=== PATIENT | male | born 1960 | race Caucasian/White ===

== ENCOUNTER 2019-09-08 16:37 | IRF | payer MEDICARE, SELFPAY ==
--- NOTE | ~2019-09-08 | XR_ITS ---
EXAMINATION: XR chest 1V portable DATE: 09/11/2019 12:45 INDICATION: Congestion. Low oxygen saturation. TECHNIQUE: A single frontal view of the chest was obtained. COMPARISON: None. FINDINGS: There are airspace opacities in the lower lung zones. No pleural effusion or pneumothorax. The heart size is normal. There are changes of anterior fusion procedure in cervical spine. IMPRESSION: 1. Airspace opacities in the lower lung zones, consistent with atelectasis versus pneumonia. Reviewed, dictated and finalized at location A. IMPRESSION: 1. Airspace opacities in the lower lung zones, consistent with atelectasis vers us pneumonia.
--- NOTE | 2019-09-08 17:06 | ADMGEN ---
This patient, Garrick Curiel, was admitted to [facility] Room 222-02. Patient/family oriented to hospital policies and general routines including ID bracelet, bed and alarms, visiting hours, pain management, procedures, bathroom and other care routines, personal items, smoking policy, room service/diet, and visiting hours. Valuables list has been completed. Information on how to activate the Rapid Response Team has been discussed. Patient/Family are encouraged to report perceived risks to care and to ask questions if they do not understand what they are told or what they should do. arrived to [facility] at 1635, was transported by [facility], he is alert and oriented x3
[2019-09-08 17:17] VITALS: BMI 29.2
[2019-09-08 17:18] VITALS: BP 132/67; PULSE 112; RESP 20; TEMP 37.1; O2SAT 98
[2019-09-08 17:44] VITALS: BMI 29.2
[2019-09-08 20:00] VITALS: PULSE 112; RESP 18; O2SAT 95
[2019-09-08] MEDS: traZODone HCL 50 MG TABLET PO (20:09)
[2019-09-08] MEDS: TAMSULOSIN HCL 0.4 MG CAPSULE 0.8 MG PO (20:09)
[2019-09-08] MEDS: HALOPERIDOL 5 MG TABLET 10 MG PO (20:09)
[2019-09-08] MEDS: ALPRAZolam 0.5 MG TABLET 1 MG PO (20:50)
[2019-09-08] MEDS: QUEtiapine FUMARATE 100 MG TABLET 300 MG PO (20:52)
[2019-09-08 20:58] LABS: Add Urine Microscopic? YES; Appearance Urine Clear (Clear); Bacteria Urine Trace /hpf; Bilirubin Urine Negative (Negative); Blood Urine 1+ (Negative); Color Urine Yellow (Yellow); Glucose Urine UA Negative (Negative); Ketones Urine Negative (Negative); Leukocyte Esterase Ur Trace LEU/UL (Negative); Nitrate Urine Negative (Negative); Protein Urine Negative (Negative); RBC Urine 21-50 /hpf (0-2); Specific Grav Ur 1.018 (1.001-1.035)
[2019-09-08 22:00] VITALS: BP 153/80; PULSE 112; RESP 18; TEMP 36.9; O2SAT 95
[2019-09-09 05:01] LABS: Basophils Percent Auto 0.5 % (0.2-1.2); Eosinophils Absolute Auto 0.4 K/mm3 (0-0.3); Eosinophils Percent Auto 5.6 % (0-4.4); Hematocrit 29.1 % (42.0-52.0); Hemoglobin 9.4 g/dL (14.0-18.0); Immature Granulocyte Absolute 0.02 K/mm3 (0.00-0.031); Immature Granulocyte Percent A 0.3 % (0-0.5); Lymphocytes Percent Auto 23.9 % (18.3-44.2); Mean Corpuscular HGB Conc 32.3 g/dl (32-36); Mean Corpuscular Hemoglobin 29.8 pg (26-34); Mean Corpuscular Volume 92.4 fl (80-100); Mean Platelet Volume 9.1 fl (7.4-10.4); Monocytes Absolute Auto 0.7 K/mm3 (0.1-0.6); Monocytes Percent Auto 11.8 % (2.6-8.5); Neutrophils Absolute Auto 3.6 K/mm3 (1.3-6.7); Neutrophils Percent Auto 57.9 % (45.5-73.1); Platelet Count Result 317 k/mm3 (150-375); Red Blood Count 3.15 M/mm3 (4.6-6.20); Red Cell Distribution Width 14.3 % (11.5-14.5); White Blood Count 6.3 K/mm3 (4.5-10.0)
[2019-09-09 05:18] LABS: Anion Gap 11.6 mmol/L (7-16); Blood Urea Nitrogen 11 mg/dL (9-20); Calcium 8.7 mg/dL (8.4-10.2); Carbon Dioxide 28 mmol/L (22-30); Chloride 101 mmol/L (98-107); Estimated CRCL calculation 74 ml/min; Estimated Glomerular Filt Rate > 60; Glucose 109 mg/dL (75-110); Potassium 3.6 mmol/L (3.4-5.0); Sodium 137 mmol/L (137-145)
[2019-09-09 06:00] VITALS: BP 122/73; PULSE 111; RESP 20; TEMP 37.3; O2SAT 91
[2019-09-09] MEDS: ASPIRIN 325 MG ENTERIC TABLET PO (09:52)
[2019-09-09] MEDS: ATORVASTATIN 40 MG TABLET 80 MG PO (09:52)
[2019-09-09] MEDS: ALPRAZolam 0.5 MG TABLET 1 MG PO ×2 (09:52→20:54)
[2019-09-09] MEDS: HALOPERIDOL 5 MG TABLET 10 MG PO ×2 (09:52→20:51)
[2019-09-09] MEDS: ENOXAPARIN 40 MG/0.4 ML SYRINGE SUB-Q (09:52)
[2019-09-09] MEDS: SENNA/DOCUSATE SODIUM TABLET 2 TAB PO ×2 (09:52→18:04)
[2019-09-09] MEDS: FERROUS SULFATE 324 MG TABLET PO (09:53)
[2019-09-09] MEDS: QUEtiapine FUMARATE 100 MG TABLET 300 MG PO ×2 (09:53→20:51)
[2019-09-09] MEDS: lisinopriL 10 MG TABLET PO (09:53)
[2019-09-09] MEDS: PANTOPRAZOLE 40 MG TABLET PO (09:53)
[2019-09-09] MEDS: LIDOCAINE 5% PATCH 1 PATCH TOPICAL (09:53)
--- NOTE | 2019-09-09 11:00 | WPDREHABHP ---
H&P: HPI History of Present Illness Chief complaint: Right Lower Extremity Fracture Narrative: Garrick Curiel is a 59 year old male HISTORY OF PRESENT ILLNESS: The patient's primary rehab impairment category is orthopedic/other The etiologic diagnosis is comminuted displaced and angulated periprosthetic fracture of the proximal right tibial diaphysis I saw this patient [id number] on September 09, 2019 at 11:00 a.m. The patient is a 59-year-old white male with past medical history of hypertension coronary artery disease bipolar disorder 1 and gastroesophageal reflux disease who initially presented to a local hospital on September 02 after falling when his knee gave out . Imaging demonstrated a comminuted displaced and angulated periprosthetic fracture of the proximal right tibial diaphysis and comminuted shortened displaced and angulated right fibular head fracture. The patient was transferred to [facility] in [place] the same day. Orthopedic surgery was consulted and the patient underwent an open reduction internal fixation of the right tibia on September 04, [address] Adrien Osorio. He is nonweightbearing to the right lower extremity for 6 weeks. Sutures/garcia to be removed 3 weeks from surgery and may be removed by rehab or home health nursing. Postoperatively the patient had experienced acute postoperative pain acute blood-loss anemia urinary retention and hypertension. He is currently on oral and just 6 he is hemodynamically stable a catheter was placed and patient was started on Flomax and hypertension is controlled with oral medications. The patient was discharged to us with Lovenox for DVT prophylaxis and then transition to and recorder aspirin 320 form b.i.d. for 14 days after discharge. The patient has a documented history of prescription pain killer/benzodiazepine abuse in 2012. The patient has not traveled outside the [place] or had contact with someone who is ill that has traveled outside the [place] in the past 21 days. The patient has not traveled to an area of the [place] and is experiencing known transmission of the Coronavirus and has not had close personal contact with anyone that has. The patient does not have a fever. The patient is not experiencing any lower respiratory illness symptoms. The patient was test for COVID-19 and September 03, 2019 and was negative Therapy was initiated at the acute care facility and the patient transferred to us from [facility] on September 08, 2019 FALLS OR SURGERIES: The patient has had ] major surgeries in the 100 days prior to admission. They had falls in the past year. They had falls with injury in the past year. PAST MEDICAL HISTORY: anemia, anxiety, bipolar 1 disorder, colon polyp, depression, epilepsy, gastroesophageal reflux disease, migraines, right rotator cuff tear, hyperlipidemia, and hypertension. The patient sees a psychiatrist for almost 15 years for his bipolar 1 disorder in [facility] PAST SURGICAL HISTORY: colonoscopy in 2014, right knee arthrocentesis, right rotator cuff repair, neck surgery with hardware, right knee surgery for torn meniscus and upper GI. SOCIAL HISTORY: Patient lives in a 1 level home with 3 steps to enter. The patient's works and is not sure how much she can take off work. Patient was completely independent prior with no assistive device. The patient has had 2 or more falls in the past 6 months and major surgery the during this admission. His a former smoker quit in March of 2019 no alcohol or drug abuse FAMILY HISTORY: father with stomach cancer mother with hypertension stroke heart attack and heart failure PRIOR LEVEL OF FUNCTION: Eating was INDEPENDENT Oral Care was INDEPENDENT Toileting Hygiene was INDEPENDENT Shower/Bathing was INDEPENDENT Upper Body Dressing was INDEPENDENT Lower Body Dressing was INDEPENDENT Donning/[place]ak[place] Footwear was INDEPENDENT Rolling Left and Right was INDEPENDENT Sit to
[2019-09-09] MEDS: CYCLOBENZAPRINE HCL 5 MG TABLET PO ×2 (13:17→18:03)
[2019-09-09 13:52] VITALS: BMI 29.2
[2019-09-09 14:00] VITALS: BP 118/58; PULSE 114; RESP 20; TEMP 36.9; O2SAT 96
--- NOTE | 2019-09-09 15:21 | PCPTNOTE ---
Leihg Li PT completed an inpatient rehab wheelchair evaluation on Garrick Curiel on 09/09/2019. The patient is unable to safely and independently ambulate household distances due to their current impairments. Their diagnosis is Right Lower Extremity Fracture and their impairments include decreased strength, decreased endurance, decreased range of motion, decreased balance, lower extremity weakness, and ataxia. Mr. Curiel's weight bearing status is non weight-bearing on the right lower leg. The patient demonstrates significant functional mobility limitations that impair their ability to participate in mobility-related activities of daily living (MRADLs), including toileting, feeding, dressing, grooming, and bathing in the customary locations in the home. These limitations cannot be sufficiently resolved by the use of an appropriately fitted cane or walker. It is recommended that the patient utilize a wheelchair for functional mobility within the home in order to facilitate optimal safety, independence and participation in all MRADL's and adequately access their home environment on a regular basis. The patient's home provides adequate access between rooms, maneuvering space, and surfaces to accommodate the recommended wheelchair. The use of a wheelchair for functional mobility is strongly recommended and the patient is receptive to using the wheelchair. The use of this wheelchair will significantly improve the patient's ability to participate in MRADLS and the patient will use it on a regular basis in the home. This will facilitate optimal safety, independence, and participation. The patient has demonstrated sufficient physical and mental capabilities needed to safely propel a manual wheelchair that is provided in the home during a typical day. Recommended Wheelchair Frame: standard Recommended Wheelchair Size: 18 x 18 Recommended Wheelchair Cushion:standard Wheelchair Leg Recommendations: Elevated, detachable - Elevating legrests are recommended because the patient has a musculoskeletal condition or the presence of a cast or brace which prevents 90 degree flexion at the knee. Elevating legrests are recommended because the patient has significant edema of the lower extremities that requires an elevating legrest. - Anti-tippers are recommended due to patient demonstrating increased risk for falls. They would benefit from anti-tippers with added safety and stabilization. Leigh Li DPT 09/09/19____ Evaluating Therapist Date I agree with and certify that the above recommendation is medically necessary. Referring Physician Date I agree with and certify that the above recommendation is medically necessary. Referring Physician Date
--- NOTE | 2019-09-09 15:27 | PCPTNOTE ---
Garrick Curiel was evaluated for a standard walker on 09/09/2019 by this physical therapist. The standard walker will resolve patient's mobility limitations and will be used for ADL's within the home. The patient can safely use the standard walker. ?The standard walker will resolve the patient?s mobility deficits, including ambulation, transfers, and overall functional mobility.
[2019-09-09] MEDS: TAMSULOSIN HCL 0.4 MG CAPSULE 0.8 MG PO (18:03)
[2019-09-09 20:00] VITALS: PULSE 110; RESP 17; O2SAT 94
[2019-09-09] MEDS: traZODone HCL 50 MG TABLET PO (20:52)
[2019-09-09 22:00] VITALS: BP 115/58; PULSE 110; RESP 17; TEMP 37.3; O2SAT 94
[2019-09-10 06:00] VITALS: BP 105/48; PULSE 105; RESP 16; TEMP 36.4; O2SAT 91
[2019-09-10] MEDS: ALPRAZolam 0.5 MG TABLET 1 MG PO ×2 (09:00→21:07)
[2019-09-10] MEDS: ATORVASTATIN 40 MG TABLET 80 MG PO (09:00)
[2019-09-10] MEDS: ENOXAPARIN 40 MG/0.4 ML SYRINGE SUB-Q (09:01)
[2019-09-10] MEDS: FERROUS SULFATE 324 MG TABLET PO (09:01)
[2019-09-10] MEDS: HALOPERIDOL 5 MG TABLET 10 MG PO ×2 (09:01→21:07)
[2019-09-10] MEDS: SENNA/DOCUSATE SODIUM TABLET 2 TAB PO ×2 (09:01→17:21)
[2019-09-10] MEDS: QUEtiapine FUMARATE 100 MG TABLET 300 MG PO ×2 (09:02→21:08)
[2019-09-10] MEDS: PANTOPRAZOLE 40 MG TABLET PO (09:02)
[2019-09-10] MEDS: LIDOCAINE 5% PATCH 1 PATCH TOPICAL (09:02)
[2019-09-10] MEDS: lisinopriL 10 MG TABLET PO (09:02)
[2019-09-10] MEDS: CYCLOBENZAPRINE HCL 5 MG TABLET PO ×3 (09:23→17:47)
[2019-09-10 09:58] VITALS: BP 81/46; PULSE 120; O2SAT 91
--- NOTE | 2019-09-10 13:21 | RPD ---
INDIVIDUALIZED PLAN OF CARE FOR Garrick Curiel Brief Synthesis of Pre-Admission Screen, Post-Admission Evaluation and Therapy Evaluations: The patient presents to rehab with Comminuted, displaced, and angulated periprosthetic fracture of the proximal right tibial diaphysis. Comorbidities include Comminuted, shortened, displaced, and angulated right fibular head fracture, bilateral hip osteoarthritis, status post open reduction internal fixation right tibia, acute postoperative pain, acute blood loss anemia, urinary retention, gastroesophageal reflux disease, anxiety, bipolar affective disorder, epilepsy, hyperlipidemia, severe esophagitis, coronary artery disease, hypertension, and hyperlipidemia. The patient?s needs will be best met in an intensive program vs. at a lower level of care. The patient requires physician services for medical oversight, management of postop complications in setting of present comorbidities, and pain management. He will be followed at least three times a week by the rehabilitation physician. Orthopedics may see the patient at the frequency of their discretion. Labs will be drawn to monitor blood counts and electrolytes periodically. The patient requires nursing services for DVT prophylactics, infection protection, medication management and education, pressure relief, and wound care. Deficits include: ADLs, Balance, Endurance, Family Training/Education, Mobility, Pain Management, ROM, Safety, Strength, and Transfers. Auto Wrecker/Case Management for: Discharge Planning and Patient/Family Counseling Physical Therapy: 5 days per week for 90 minutes. Treatments may include: Therapeutic Exercise, Gait Training, Neuromuscular Re-education, Transfer Training, Community Reintegration, Bed Mobility, Patient/Family Education, Wheelchair Mobility Group Therapy/Concurrent Therapy Rationales: -Improve attention span during functional activities in a distracted environment. -Enhance problem solving and/or adequate judgment skills during functional activities in a distracted environment. -Promote increased safety awareness in a distracted environment to reduce fall risk with functional tasks, transfers, and ambulation to allow a more safe, self-sufficient return to the home environment. -Improve dynamic balance skills to promote safety and independence with functional activities in a distracted environment for maximum gain. Occupational Therapy: 5 days per week for 90 minutes. Treatments may include: Therapeutic Exercise, Therapeutic Activity, Cognitive Training, Self-Care Transfer Training, Community Reintegration, Home Management, Patient/Family Education, Wheelchair Mobility Training, Energy Conservation Training Group Therapy/Concurrent Therapy Rationales: -Allow therapist to observe and teach generalization and carry-over of skills learned in individual therapy. -Enhance problem solving and sequencing skills during therapeutic activities in a distracted environment. -Promote increased safety awareness in a realistic setting to reduce fall risk with functional tasks due to visual and verbal distractions. -Increase functional level with ADLs, ADL transfers and use of adaptive equipment through therapeutic activities with others while promoting safety to allow a more safe, self-sufficient return home. Speech Therapy: 0 days per week for 0 minutes. Treatments may include: Dysphasia Therapy, Speech/Language/Communication Therapy, Cognitive Training, Patient/Family Education Group Therapy/Concurrent Therapy - Rationale: -Allow therapist to observe and teach generalization and carry-over of skills learned in individual therapy. -Improve comprehension skills with complex or abstract ideas through discussion in a realistic setting. -Enhance problem solving skills with complex issues during activities in a distracted environment. -Promote increased memory skills and concentration in a distracted environment for a safe transition home. -Improve attentio
--- NOTE | 2019-09-10 13:54 | RPD ---
INDIVIDUALIZED PLAN OF CARE FOR Garrick Curiel Brief Synthesis of Pre-Admission Screen, Post-Admission Evaluation and Therapy Evaluations: The patient presents to rehab with . Comorbidities include . Deficits include: Marketing Strategy Analyst/Case Management for: Discharge Planning and Patient/Family Counseling Physical Therapy: 5 days per week for 90 minutes. Treatments may include: Therapeutic Exercise, Gait Training, Neuromuscular Re-education, Transfer Training, Community Reintegration, Bed Mobility, Patient/Family Education, Wheelchair Mobility Group Therapy/Concurrent Therapy Rationales: -Improve attention span during functional activities in a distracted environment. -Enhance problem solving and/or adequate judgment skills during functional activities in a distracted environment. -Promote increased safety awareness in a distracted environment to reduce fall risk with functional tasks, transfers, and ambulation to allow a more safe, self-sufficient return to the home environment. -Improve dynamic balance skills to promote safety and independence with functional activities in a distracted environment for maximum gain. Occupational Therapy: 5 days per week for 90 minutes. Treatments may include: Therapeutic Exercise, Therapeutic Activity, Cognitive Training, Self-Care Transfer Training, Community Reintegration, Home Management, Patient/Family Education, Wheelchair Mobility Training, Energy Conservation Training Group Therapy/Concurrent Therapy Rationales: -Allow therapist to observe and teach generalization and carry-over of skills learned in individual therapy. -Enhance problem solving and sequencing skills during therapeutic activities in a distracted environment. -Promote increased safety awareness in a realistic setting to reduce fall risk with functional tasks due to visual and verbal distractions. -Increase functional level with ADLs, ADL transfers and use of adaptive equipment through therapeutic activities with others while promoting safety to allow a more safe, self-sufficient return home. Speech Therapy: 5 days per week for 30 minutes. Treatments may include: Dysphasia Therapy, Speech/Language/Communication Therapy, Cognitive Training, Patient/Family Education Group Therapy/Concurrent Therapy - Rationale: -Allow therapist to observe and teach generalization and carry-over of skills learned in individual therapy. -Improve comprehension skills with complex or abstract ideas through discussion in a realistic setting. -Enhance problem solving skills with complex issues during activities in a distracted environment. -Promote increased memory skills and concentration in a distracted environment for a safe transition home. -Improve attention and focus with language/communication skills in a realistic and supportive therapeutic setting. -Allow for practice of expression of basic needs and ideas through functional activities with others. Medical Prognosis: Good Anticipated Length of Stay: 12 days Rehab Goals: Eating Goal: 06-Independent Oral Hygiene Goal: 06-Independent Toileting Hygiene Goal: 06-Independent Shower/Bathe Self Goal: 06-Independent Upper Body Dressing Goal: 06-Independent Lower Body Dressing Goal: 06-Independent Putting On/Taking Off Footwear Goal: 06-Independent Rolling Left and Right Goal: 06-Independent Sit to Lying Goal: 06-Independent Lying to Sitting on Side of Bed Goal: 06-Independent Sit to Stand Goal: 06-Independent Chair/Cxu-ey-Tzodr Transfer Goal: 06-Independent Toilet Transfer Goal: 06-Independent Car Transfer Goal: 06-Independent Walk 10' Goal: 03-Partial/Moderate Assistance Walk 50' with Two Turns Goal: 06-Independent Walk 150' Goal: 06-Independent Walk 10' on Uneven Surface Goal: 06-Independent 1 Step (Curb) Goal: 06-Independent 4 Steps Goal: 06-Independent 12 Steps Goal Score: 09-Not Applicable Picking Up Object Goal: 06-Independent Wheel 50' with Two Turns Score: 06-Independent Wheel 150' Goal: 06-Independent
[2019-09-10 14:00] VITALS: BP 95/53; PULSE 110; RESP 16; TEMP 36.5; O2SAT 92
--- NOTE | 2019-09-10 15:34 | WPDNEURORHBP ---
Subjective Date/time seen: 09/10/19 15:34 Interval history: this 59-year-old is here after having had surgery for the right lower extremity fracture his doing fairly well however he has a Bolden catheter which I have requested to get to a point of voiding trial and get rid of the catheter his blood pressure is also on the low side so have told the nurses to hold his lisinopril overall pictures of improvement denies any headache nausea vomiting chest pain shortness of breath fever chills sore throat Review of Systems Review of Systems: All systems reviewed & are unremarkable except as noted in HPI and below Functional Status Ambulation Ability Ability to Ambulate 10 Feet: Contact Guard Ambulation Assistive Devices: Walker, Standard Transfers Ability Ability to Transfer In/Out of Chair: Contact Guard Exam Const: General: comfortable and no acute distress HENMT: General nose exam: Normal nares present Mouth: Yes moist mucous membranes Eyes: General: appearance normal, both eyes and all related structures Neck: Neck: supple and no JVD Resp: Effort & Inspection: normal respiratory effort Auscultation: clear to auscultation bilaterally Cardio: Rate: regular rate Rhythm: regular rhythm GI: GI Palp: Yes Soft to palpation Auscultation: normal bowel sounds Urinary Catheter: Urinary Catheter: patent and draining Skin: General skin exam: normal color and no rashes or lesions noted Neuro: Other: patient is awake and alert well oriented to time place and person the weakness related to the surgery of course is there otherwise no lateralizing focal motor deficits noted Extrem: Other: the incision from the periprosthetic fracture of the right lower extremity is clean Psych: Mental Status: mental status grossly normal Objective Data Vital Signs Vital Signs: Vital Signs - 24 hr 09/09/19 20:00 09/09/19 22:00 09/10/19 06:00 Temperature 37.3 C 36.4 C L Pulse Rate 110 H 110 H 105 H Respiratory Rate 17 17 16 Blood Pressure 115/58 L 105/48 L Pulse Oximetry 94 94 91 09/10/19 09:58 09/10/19 14:00 Temperature 36.5 C Pulse Rate 120 H 110 H Respiratory Rate 16 Blood Pressure 81/46 L 95/53 L Pulse Oximetry 91 92 Intake/Output Intake/Output: Intake & Output 09/07/19 09/08/19 09/09/19 09/10/19 23:59 23:59 23:59 23:59 Intake Total 720 990 Output Total 1440 775 Balance -1330 215 Meds/Results Medications: Active Medications Generic Name Dose Route Start Last Admin Trade Name Nika PRN Reason Stop Dose Admin Acetaminophen 1,000 mg 09/08/19 18:02 Tylenol Tablet PO Q6H PRN Pain 1-3 Alprazolam 1 mg 09/08/19 21:00 09/10/19 09:00 Xanax PO 1 mg Q12HR MATT Administration Atorvastatin Calcium 80 mg 09/09/19 09:00 09/10/19 09:00 Lipitor PO 80 mg DAILY MATT Administration Cyclobenzaprine HCl 5 mg 09/09/19 13:00 09/10/19 13:09 Flexeril PO 5 mg TID MATT Administration Enoxaparin Sodium 40 mg 09/09/19 09:00 09/10/19 09:01 Lovenox SUB-Q 10/06/19 09:00 40 mg DAILY MATT Administration Ferrous Sulfate 324 mg 09/09/19 09:00 09/10/19 09:01 Ferrous Sulfate PO 324 mg DAILY MATT Administration Haloperidol 10 mg 09/08/19 21:00 09/10/19 09:01 Haldol Tablet PO 10 mg Q12HR MATT Administration Lidocaine 1 patch 09/09/19 09:00 09/10/19 09:02 Lidoderm TOPICAL 1 patch DAILY MATT Administration Oxycodone HCl 5 mg 09/09/19 13:00 09/10/19 13:09 Roxicodone Ir Tablet PO 5 mg Q4HR MATT Administration Pantoprazole Sodium 40 mg 09/09/19 09:00 09/10/19 09:02 Protonix PO 40 mg QAM MATT Administration Quetiapine Fumarate 300 mg 09/08/19 21:00 09/10/19 09:02 Seroquel PO 300 mg Q12HR MATT Administration Senna/Docusate Sodium 2 tab 09/09/19 09:00 09/10/19 09:01 Senokot S Tablet PO 2 tab BID MATT Administration Tamsulosin HCl 0.8 mg 09/08/19 18:30 09/09/19 18:03 Flomax PO 0.8 mg DAILY@1700 S
[2019-09-10] MEDS: TAMSULOSIN HCL 0.4 MG CAPSULE 0.8 MG PO (17:46)
[2019-09-10] MEDS: traZODone HCL 50 MG TABLET PO (21:09)
[2019-09-10 22:00] VITALS: BP 114/42; PULSE 106; RESP 18; TEMP 36.8; O2SAT 95
[2019-09-11 06:00] VITALS: BP 107/55; PULSE 99; RESP 18; TEMP 36.7; O2SAT 93
[2019-09-11] MEDS: CYCLOBENZAPRINE HCL 5 MG TABLET PO ×3 (08:35→17:06)
[2019-09-11] MEDS: HALOPERIDOL 5 MG TABLET 10 MG PO ×2 (08:35→20:35)
[2019-09-11] MEDS: ALPRAZolam 0.5 MG TABLET 1 MG PO ×2 (08:35→20:38)
[2019-09-11] MEDS: ENOXAPARIN 40 MG/0.4 ML SYRINGE SUB-Q (08:35)
[2019-09-11] MEDS: ATORVASTATIN 40 MG TABLET 80 MG PO (08:35)
[2019-09-11] MEDS: QUEtiapine FUMARATE 100 MG TABLET 300 MG PO ×2 (08:36→20:35)
[2019-09-11] MEDS: LIDOCAINE 5% PATCH 1 PATCH TOPICAL (08:36)
[2019-09-11] MEDS: FERROUS SULFATE 324 MG TABLET PO (11:26)
[2019-09-11] MEDS: SENNA/DOCUSATE SODIUM TABLET 2 TAB PO ×2 (11:26→17:06)
[2019-09-11] MEDS: PANTOPRAZOLE 40 MG TABLET PO (11:27)
--- NOTE | 2019-09-11 13:53 | PC.NURSE ---
lung sounds this am are coarse with wheezes throughout, reported to dr. Smith, cxr and albuterol nebs ordered. cxr results called to [facility] rogers ordered Educated patient on importance of using incentive spirometer/pulmonary toileting He verbalized understandin
[2019-09-11 14:00] VITALS: BP 121/47; PULSE 114; RESP 16; TEMP 36.7; O2SAT 94
[2019-09-11 14:42] LABS: Basophils Percent Auto 0.3 % (0.2-1.2); Eosinophils Absolute Auto 0.3 K/mm3 (0-0.3); Eosinophils Percent Auto 5.4 % (0-4.4); Hematocrit 28.6 % (42.0-52.0); Hemoglobin 9.2 g/dL (14.0-18.0); Immature Granulocyte Absolute 0.03 K/mm3 (0.00-0.031); Immature Granulocyte Percent A 0.5 % (0-0.5); Lymphocytes Percent Auto 29.4 % (18.3-44.2); Mean Corpuscular HGB Conc 32.2 g/dl (32-36); Mean Corpuscular Volume 93.2 fl (80-100); Mean Platelet Volume 8.9 fl (7.4-10.4); Monocytes Absolute Auto 0.8 K/mm3 (0.1-0.6); Monocytes Percent Auto 13.4 % (2.6-8.5); Neutrophils Absolute Auto 3.1 K/mm3 (1.3-6.7); Platelet Count Result 424 k/mm3 (150-375); Red Blood Count 3.07 M/mm3 (4.6-6.20); Red Cell Distribution Width 14.6 % (11.5-14.5); White Blood Count 6.1 K/mm3 (4.5-10.0)
[2019-09-11] MEDS: ALBUTEROL SULFATE NEB 2.5 MG/3 ML INH INHALATION ×2 (14:43→21:50)
[2019-09-11 14:44] VITALS: PULSE 92; RESP 16
[2019-09-11 14:52] VITALS: PULSE 88; RESP 16
[2019-09-11] MEDS: TAMSULOSIN HCL 0.4 MG CAPSULE 0.8 MG PO (17:07)
[2019-09-11] MEDS: traZODone HCL 50 MG TABLET PO (20:35)
[2019-09-11 21:50] VITALS: PULSE 104; RESP 18
[2019-09-11 22:00] VITALS: BP 112/73; PULSE 105; PULSE 111; RESP 18; TEMP 37; O2SAT 92
[2019-09-12] VITALS (12 sets, daily range): BP systolic 102–139; BP diastolic 58–63; PULSE 91–113; RESP 18–20; TEMP 36.3–36.9; O2SAT 91–98
[2019-09-12] MEDS: ALBUTEROL SULFATE NEB 2.5 MG/3 ML INH INHALATION ×4 (03:07→21:07)
[2019-09-12] MEDS: HALOPERIDOL 5 MG TABLET 10 MG PO ×2 (08:32→19:48)
[2019-09-12] MEDS: LIDOCAINE 5% PATCH 1 PATCH TOPICAL (08:32)
[2019-09-12] MEDS: ENOXAPARIN 40 MG/0.4 ML SYRINGE SUB-Q (08:32)
[2019-09-12] MEDS: ALPRAZolam 0.5 MG TABLET 1 MG PO ×2 (08:33→19:46)
[2019-09-12] MEDS: CYCLOBENZAPRINE HCL 5 MG TABLET PO ×3 (08:33→17:17)
[2019-09-12] MEDS: QUEtiapine FUMARATE 100 MG TABLET 300 MG PO ×2 (08:33→19:48)
[2019-09-12] MEDS: FERROUS SULFATE 324 MG TABLET PO (08:33)
[2019-09-12] MEDS: SENNA/DOCUSATE SODIUM TABLET 2 TAB PO ×2 (08:33→17:18)
[2019-09-12] MEDS: PANTOPRAZOLE 40 MG TABLET PO (08:33)
[2019-09-12] MEDS: ATORVASTATIN 40 MG TABLET 80 MG PO (08:33)
--- NOTE | 2019-09-12 14:06 | PCCCNOTE ---
On 09/12/19, the student, [Alexi Gleason ], provided care and completed [facility] documentation on this patient. I have reviewed the student's documentation and agree with the findings.
--- NOTE | 2019-09-12 14:48 | WPDNEURORHBP ---
Subjective Date/time seen: 09/12/19 14:48 Interval history: this 59-year-old with a history of bipolar disorder is here to recuperate post surgery for the right knee periprosthetic fracture he is making progress denies any headache nausea vomiting chest pain shortness of breath fever chills sore throat Review of Systems Review of Systems: All systems reviewed & are unremarkable except as noted in HPI and below Functional Status Ambulation Ability Ability to Ambulate 10 Feet: Contact Guard Ambulation Assistive Devices: Walker, Standard Transfers Ability Ability to Transfer In/Out of Chair: Contact Guard Exam Const: General: comfortable and no acute distress HENMT: General nose exam: Normal nares present Mouth: Yes moist mucous membranes Eyes: General: appearance normal, both eyes and all related structures Neck: Neck: supple and no JVD Resp: Effort & Inspection: normal respiratory effort Auscultation: clear to auscultation bilaterally Cardio: Rate: regular rate Rhythm: regular rhythm GI: GI Palp: Yes Soft to palpation Auscultation: normal bowel sounds Skin: General skin exam: normal color and no rashes or lesions noted Neuro: Other: patient is awake and alert well oriented making progress any deficit he has is related to the fracture he sustained otherwise a nonfocal examination Extrem: Other: the incision from the surgery for the periprosthetic fracture is clean no sign of infection Psych: Mental Status: mental status grossly normal Objective Data Vital Signs Vital Signs: Vital Signs - 24 hr 09/11/19 14:52 09/11/19 21:50 09/11/19 22:00 Temperature 37.0 C Pulse Rate 88 104 H 105 H Respiratory Rate 16 18 18 Blood Pressure 112/73 Pulse Oximetry 92 09/12/19 03:08 09/12/19 03:16 09/12/19 06:00 Temperature 36.9 C Pulse Rate 91 93 102 H Respiratory Rate 18 18 18 Blood Pressure 102/58 L Pulse Oximetry 91 09/12/19 07:22 09/12/19 07:33 09/12/19 14:00 Temperature 36.3 C L Pulse Rate 102 H 93 113 H Respiratory Rate 20 20 20 Blood Pressure 111/63 Pulse Oximetry 97 09/12/19 14:44 Temperature Pulse Rate 106 H Respiratory Rate 20 Blood Pressure Pulse Oximetry Intake/Output Intake/Output: Intake & Output 09/09/19 09/10/19 09/11/1920 23:59 23:59 23:59 23:59 Intake Total 720 1290 1240 720 Output Total 1216 1175 1500 Balance -1330 115 -260 720 Meds/Results Medications: Active Medications Generic Name Dose Route Start Last Admin Trade Name Freq PRN Reason Stop Dose Admin Acetaminophen 1,000 mg 09/08/19 18:02 Tylenol Tablet PO Q6H PRN Pain 1-3 Albuterol 2.5 mg 09/11/19 14:00 09/12/19 14:43 Albuterol Sulf Neb 2.5 Mg/3 Ml INHALATION 2.5 mg Q6HRT MATT Administration Alprazolam 1 mg 09/08/19 21:00 09/12/19 08:33 Xanax PO 1 mg Q12HR MATT Administration Atorvastatin Calcium 80 mg 09/09/19 09:00 09/12/19 08:33 Lipitor PO 80 mg DAILY MATT Administration Cyclobenzaprine HCl 5 mg 09/09/19 13:00 09/12/19 13:11 Flexeril PO 5 mg TID MATT Administration Enoxaparin Sodium 40 mg 09/09/19 09:00 09/12/19 08:32 Lovenox SUB-Q 10/06/19 09:00 40 mg DAILY MATT Administration Ferrous Sulfate 324 mg 09/09/19 09:00 09/12/19 08:33 Ferrous Sulfate PO 324 mg DAILY MATT Administration Haloperidol 10 mg 09/08/19 21:00 09/12/19 08:32 Haldol Tablet PO 10 mg Q12HR MATT Administration Lidocaine 1 patch 09/09/19 09:00 09/12/19 08:32 Lidoderm TOPICAL 1 patch DAILY MATT Administration Oxycodone HCl 5 mg 09/09/19 13:00 09/12/19 13:11 Roxicodone Ir Tablet PO 5 mg Q4HR MATT Administration Pantoprazole Sodium 40 mg 09/09/19 09:00 09/12/19 08:33 Protonix PO 40 mg QAM MATT Administration Quetiapine Fumarate 300 mg 09/08/19 21:00 09/12/19 08:33 Seroquel PO 300 mg Q12HR MATT Administration Senna/Docusate Sodium 2 tab 09/09/19 09:00 09/12/19 08:33
[2019-09-12] MEDS: TAMSULOSIN HCL 0.4 MG CAPSULE 0.8 MG PO (17:17)
[2019-09-12] MEDS: traZODone HCL 50 MG TABLET PO (19:48)
[2019-09-13] VITALS (10 sets, daily range): BP systolic 113–132; BP diastolic 54–68; PULSE 72–108; RESP 18–20; TEMP 36.4–36.8; O2SAT 95–100
[2019-09-13] MEDS: ALBUTEROL SULFATE NEB 2.5 MG/3 ML INH INHALATION ×4 (02:56→21:06)
[2019-09-13] MEDS: ALPRAZolam 0.5 MG TABLET 1 MG PO ×2 (08:11→20:20)
[2019-09-13] MEDS: CYCLOBENZAPRINE HCL 5 MG TABLET PO ×3 (08:12→17:31)
[2019-09-13] MEDS: QUEtiapine FUMARATE 100 MG TABLET 300 MG PO ×2 (08:12→20:20)
[2019-09-13] MEDS: SENNA/DOCUSATE SODIUM TABLET 2 TAB PO ×2 (08:12→17:31)
[2019-09-13] MEDS: PANTOPRAZOLE 40 MG TABLET PO (08:12)
[2019-09-13] MEDS: ENOXAPARIN 40 MG/0.4 ML SYRINGE SUB-Q (08:12)
[2019-09-13] MEDS: ATORVASTATIN 40 MG TABLET 80 MG PO (08:12)
[2019-09-13] MEDS: LIDOCAINE 5% PATCH 1 PATCH TOPICAL (08:12)
[2019-09-13] MEDS: FERROUS SULFATE 324 MG TABLET PO (08:12)
[2019-09-13] MEDS: HALOPERIDOL 5 MG TABLET 10 MG PO ×2 (08:13→20:20)
[2019-09-13] MEDS: ACETAMINOPHEN 500 MG TABLET 1000 MG PO (11:44)
--- NOTE | 2019-09-13 14:03 | PCRCNOTE ---
pt did not get respiratory tx/in gym with PT for an hour
[2019-09-13] MEDS: TAMSULOSIN HCL 0.4 MG CAPSULE 0.8 MG PO (17:31)
[2019-09-13] MEDS: traZODone HCL 50 MG TABLET PO (20:20)
[2019-09-14] VITALS (9 sets, daily range): BP systolic 110–133; BP diastolic 56–63; PULSE 89–104; RESP 16–18; TEMP 36.5–36.9; O2SAT 95–98
[2019-09-14] MEDS: ALBUTEROL SULFATE NEB 2.5 MG/3 ML INH INHALATION ×3 (03:09→20:13)
[2019-09-14] MEDS: HALOPERIDOL 5 MG TABLET 10 MG PO ×2 (08:23→20:36)
[2019-09-14] MEDS: CYCLOBENZAPRINE HCL 5 MG TABLET PO ×3 (08:23→17:26)
[2019-09-14] MEDS: LIDOCAINE 5% PATCH 1 PATCH TOPICAL (08:23)
[2019-09-14] MEDS: ALPRAZolam 0.5 MG TABLET 1 MG PO ×2 (08:23→20:36)
[2019-09-14] MEDS: FERROUS SULFATE 324 MG TABLET PO (08:24)
[2019-09-14] MEDS: ENOXAPARIN 40 MG/0.4 ML SYRINGE SUB-Q (08:24)
[2019-09-14] MEDS: ATORVASTATIN 40 MG TABLET 80 MG PO (08:24)
[2019-09-14] MEDS: PANTOPRAZOLE 40 MG TABLET PO (08:24)
[2019-09-14] MEDS: SENNA/DOCUSATE SODIUM TABLET 2 TAB PO ×2 (08:24→17:26)
[2019-09-14] MEDS: QUEtiapine FUMARATE 100 MG TABLET 300 MG PO ×2 (08:25→20:35)
[2019-09-14] MEDS: TAMSULOSIN HCL 0.4 MG CAPSULE 0.8 MG PO (17:27)
[2019-09-14] MEDS: traZODone HCL 50 MG TABLET PO (20:36)
[2019-09-15 06:00] VITALS: BP 109/69; PULSE 93; RESP 18; TEMP 36.6; O2SAT 94
[2019-09-15] MEDS: ENOXAPARIN 40 MG/0.4 ML SYRINGE SUB-Q (09:30)
[2019-09-15] MEDS: LIDOCAINE 5% PATCH 1 PATCH TOPICAL (09:30)
[2019-09-15] MEDS: HALOPERIDOL 5 MG TABLET 10 MG PO ×2 (09:31→20:18)
[2019-09-15] MEDS: SENNA/DOCUSATE SODIUM TABLET 2 TAB PO ×2 (09:31→17:37)
[2019-09-15] MEDS: ATORVASTATIN 40 MG TABLET 80 MG PO (09:31)
[2019-09-15] MEDS: ALPRAZolam 0.5 MG TABLET 1 MG PO ×2 (09:31→20:17)
[2019-09-15] MEDS: CYCLOBENZAPRINE HCL 5 MG TABLET PO ×3 (09:31→17:37)
[2019-09-15] MEDS: FERROUS SULFATE 324 MG TABLET PO (09:31)
[2019-09-15] MEDS: PANTOPRAZOLE 40 MG TABLET PO (09:31)
[2019-09-15] MEDS: QUEtiapine FUMARATE 100 MG TABLET 300 MG PO ×2 (09:32→20:18)
--- NOTE | 2019-09-15 11:51 | WPDNEURORHBP ---
Subjective Date/time seen: seen on 09/14/19 at 12 noon and doumented todayh/oright periprosthetic fracture with underlying bipolar illness Functional Status Ambulation Ability Ability to Ambulate 10 Feet: Contact Guard Ability to Ambulate 50 Feet With 2 Turns: Contact Guard Ambulation Assistive Devices: Walker, Standard Transfers Ability Ability to Transfer In/Out of Chair: Contact Guard Exam Const: General: cooperative, comfortable and no acute distress HENMT: Head: normal to inspection Ears: hearing grossly normal bilaterally General nose exam: Normal external nose present and No nasal discharge present Face and sinus: normal facial exam Mouth: Yes Normal oral and palatal mucosa present Eyes: General: appearance normal, both eyes and all related structures Neck: Neck: full ROM Resp: Auscultation: clear to auscultation bilaterally Cardio: Rate: regular rate Rhythm: regular rhythm Skin: General skin exam: no rashes or lesions noted Neuro: General: oriented to time Cranial nerves: Yes CN's II-XII intact bilaterally Cognition (Neuro): normal cognition Speech: normal speech Motor exam (neuro): 5/5 motor strength present throughout Sensory Exam: normal sensation Plantar Reflex Responses: downgoing: bilateral Coordination: [id number] test normal Extrem: General: normal to inspection Psych: Appearance: grossly normal Objective Data Vital Signs Vital Signs: Vital Signs - 24 hr 09/14/19 14:00 09/14/19 20:13 09/14/19 20:16 Temperature 36.9 C 36.5 C Pulse Rate 104 H 97 102 H Respiratory Rate 18 18 16 Blood Pressure 114/61 133/63 Pulse Oximetry 98 98 09/14/19 20:22 09/15/19 06:00 Temperature 36.6 C Pulse Rate 99 93 Respiratory Rate 18 18 Blood Pressure 109/69 Pulse Oximetry 94 Intake/Output Intake/Output: Intake & Output 09/12/19 09/13/19 09/14/19 09/15/19 23:59 23:59 23:59 23:59 Intake Total 960 960 880 240 Balance 960 960 880 240 Meds/Results Medications: Active Medications Generic Name Dose Route Start Last Admin Trade Name Freq PRN Reason Stop Dose Admin Acetaminophen 1,000 mg 09/08/19 18:02 09/13/19 11:44 Tylenol Tablet PO 1,000 mg Q6H PRN Administration Pain 1-3 Albuterol 2.5 mg 09/14/19 13:19 09/14/19 20:13 Albuterol Sulf Neb 2.5 Mg/3 Ml INHALATION 2.5 mg Q6HRT PRN Administration Shortness Of Breath Alprazolam 1 mg 09/08/19 21:00 09/15/19 09:31 Xanax PO 1 mg Q12HR MATT Administration Atorvastatin Calcium 80 mg 09/09/19 09:00 09/15/19 09:31 Lipitor PO 80 mg DAILY MATT Administration Cyclobenzaprine HCl 5 mg 09/09/19 13:00 09/15/19 09:31 Flexeril PO 5 mg TID MATT Administration Enoxaparin Sodium 40 mg 09/09/19 09:00 09/15/19 09:30 Lovenox SUB-Q 10/06/19 09:00 40 mg DAILY MATT Administration Ferrous Sulfate 324 mg 09/09/19 09:00 09/15/19 09:31 Ferrous Sulfate PO 324 mg DAILY MATT Administration Haloperidol 10 mg 09/08/19 21:00 09/15/19 09:31 Haldol Tablet PO 10 mg Q12HR MATT Administration Lidocaine 1 patch 09/09/19 09:00 09/15/19 09:30 Lidoderm TOPICAL 1 patch DAILY MATT Administration Oxycodone HCl 5 mg 09/09/19 13:00 09/15/19 09:31 Roxicodone Ir Tablet PO 5 mg Q4HR MATT Administration Pantoprazole Sodium 40 mg 09/09/19 09:00 09/15/19 09:31 Protonix PO 40 mg QAM MATT Administration Quetiapine Fumarate 300 mg 09/08/19 21:00 09/15/19 09:32 Seroquel PO 300 mg Q12HR MATT Administration Senna/Docusate Sodium 2 tab 09/09/19 09:00 09/15/19 09:31 Senokot S Tablet PO 2 tab BID MATT Administration Tamsulosin HCl 0.8 mg 09/08/19 18:30 09/14/19 17:27 Flomax PO 0.8 mg DAILY@1700 MATT Administration Trazodone HCl 50 mg 09/08/19 21:00 09/14/19 20:36 Desyrel PO 50 mg HS MATT Administration Radiology Results: ITS Impressions Chest X-Ray 09/11/19 12:51 IMPRESSION: 1. Airspace opacities in the lower
[2019-09-15 14:00] VITALS: BP 130/89; PULSE 101; RESP 20; TEMP 36.7; O2SAT 100
[2019-09-15 15:08] VITALS: PULSE 90; RESP 20
[2019-09-15] MEDS: ALBUTEROL SULFATE NEB 2.5 MG/3 ML INH INHALATION (15:08)
[2019-09-15 15:21] VITALS: PULSE 94; RESP 20
[2019-09-15] MEDS: TAMSULOSIN HCL 0.4 MG CAPSULE 0.8 MG PO (17:37)
[2019-09-15] MEDS: traZODone HCL 50 MG TABLET PO (20:18)
[2019-09-15 21:44] VITALS: BP 135/76; PULSE 100; RESP 18; TEMP 35.8; O2SAT 98
[2019-09-16] VITALS (7 sets, daily range): BP systolic 122–141; BP diastolic 71–73; PULSE 94–108; RESP 16–20; TEMP 35.4–36.8; O2SAT 97–98
[2019-09-16] MEDS: ALBUTEROL SULFATE NEB 2.5 MG/3 ML INH INHALATION ×2 (05:36→15:12)
[2019-09-16 05:44] LABS: Basophils Absolute Auto 0.1 K/mm3 (0.0-0.1); Basophils Percent Auto 0.6 % (0.2-1.2); Eosinophils Absolute Auto 0.3 K/mm3 (0-0.3); Eosinophils Percent Auto 4.2 % (0-4.4); Hematocrit 30.8 % (42.0-52.0); Hemoglobin 9.7 g/dL (14.0-18.0); Immature Granulocyte Absolute 0.05 K/mm3 (0.00-0.031); Immature Granulocyte Percent A 0.6 % (0-0.5); Lymphocytes Absolute Auto 2.04 K/mm3 (0.9-3.2); Lymphocytes Percent Auto 26.3 % (18.3-44.2); Mean Corpuscular HGB Conc 31.5 g/dl (32-36); Mean Corpuscular Hemoglobin 29.7 pg (26-34); Mean Corpuscular Volume 94.2 fl (80-100); Monocytes Absolute Auto 0.9 K/mm3 (0.1-0.6); Monocytes Percent Auto 11.5 % (2.6-8.5); Neutrophils Absolute Auto 4.4 K/mm3 (1.3-6.7); Neutrophils Percent Auto 56.8 % (45.5-73.1); Platelet Count Result 645 k/mm3 (150-375); Red Blood Count 3.27 M/mm3 (4.6-6.20); Red Cell Distribution Width 14.4 % (11.5-14.5); White Blood Count 7.8 K/mm3 (4.5-10.0)
[2019-09-16 06:05] LABS: Blood Urea Nitrogen 11 mg/dL (9-20); Carbon Dioxide 29 mmol/L (22-30); Chloride 103 mmol/L (98-107); Estimated CRCL calculation 67 ml/min; Estimated Glomerular Filt Rate > 60; Glucose 104 mg/dL (75-110); Sodium 139 mmol/L (137-145)
[2019-09-16] MEDS: LIDOCAINE 5% PATCH 1 PATCH TOPICAL (08:08)
[2019-09-16] MEDS: ENOXAPARIN 40 MG/0.4 ML SYRINGE SUB-Q (08:08)
[2019-09-16] MEDS: CYCLOBENZAPRINE HCL 5 MG TABLET PO (08:09)
[2019-09-16] MEDS: ATORVASTATIN 40 MG TABLET 80 MG PO (08:09)
[2019-09-16] MEDS: SENNA/DOCUSATE SODIUM TABLET 2 TAB PO ×2 (08:09→17:09)
[2019-09-16] MEDS: FERROUS SULFATE 324 MG TABLET PO (08:10)
[2019-09-16] MEDS: QUEtiapine FUMARATE 100 MG TABLET 300 MG PO ×2 (08:10→21:15)
[2019-09-16] MEDS: HALOPERIDOL 5 MG TABLET 10 MG PO ×2 (08:10→21:16)
[2019-09-16] MEDS: PANTOPRAZOLE 40 MG TABLET PO (08:10)
[2019-09-16] MEDS: ALPRAZolam 0.5 MG TABLET 1 MG PO ×2 (08:10→21:15)
--- NOTE | 2019-09-16 12:24 | WPDNEURORHBP ---
Subjective Date/time seen: 09/16/19 12:24 Interval history: this 59-year-old gentleman is here post surgery for periprosthetic fracture of his right knee is making progress however the pain is slowing down is therapy but is quite motivated and doing fairly well with the adjustment of the pain medication he denies any headache nausea vomiting chest pain or shortness of breath Review of Systems Review of Systems: All systems reviewed & are unremarkable except as noted in HPI and below Functional Status Ambulation Ability Ability to Ambulate 10 Feet: Standby Assistance Ability to Ambulate 50 Feet With 2 Turns: Contact Guard Ambulation Assistive Devices: Walker, Standard Transfers Ability Ability to Transfer In/Out of Chair: Contact Guard Exam Const: General: comfortable and no acute distress HENMT: General nose exam: Normal nares present Mouth: Yes moist mucous membranes Eyes: General: appearance normal, both eyes and all related structures Neck: Neck: supple and no JVD Resp: Effort & Inspection: normal respiratory effort Auscultation: clear to auscultation bilaterally Cardio: Rate: regular rate Rhythm: regular rhythm Skin: General skin exam: normal color and no rashes or lesions noted Neuro: Other: patient is awake and alert well oriented follows all commands the time of the examination after the team conference he was doing fairly well and pain is fairly well controlled Extrem: Other: the surgical site is clean Psych: Mental Status: mental status grossly normal Objective Data Vital Signs Vital Signs: Vital Signs - 24 hr 09/15/19 14:00 09/15/19 15:08 09/15/19 15:21 Temperature 36.7 C Pulse Rate 101 H 90 94 Respiratory Rate 20 20 20 Blood Pressure 130/89 Pulse Oximetry 100 09/15/19 21:44 09/16/19 05:37 09/16/19 05:44 Temperature 35.8 C L Pulse Rate 100 103 H 100 Respiratory Rate 18 16 18 Blood Pressure 135/76 Pulse Oximetry 98 09/16/19 06:00 Temperature 35.4 C L Pulse Rate 108 H Respiratory Rate 18 Blood Pressure 122/71 Pulse Oximetry 97 Intake/Output Intake/Output: Intake & Output 09/13/19 09/14/19 09/15/19 09/16/19 23:59 23:59 23:59 23:59 Intake Total 960 880 720 500 Balance 960 880 720 500 Meds/Results Medications: Active Medications Generic Name Dose Route Start Last Admin Trade Name Serafinq PRN Reason Stop Dose Admin Acetaminophen 1,000 mg 09/08/19 18:02 09/13/19 11:44 Tylenol Tablet PO 1,000 mg Q6H PRN Administration Pain 1-3 Albuterol 2.5 mg 09/14/19 13:19 09/16/19 05:36 Albuterol Sulf Neb 2.5 Mg/3 Ml INHALATION 2.5 mg Q6HRT PRN Administration Shortness Of Breath Alprazolam 1 mg 09/08/19 21:00 09/16/19 08:10 Xanax PO 1 mg Q12HR MATT Administration Atorvastatin Calcium 80 mg 09/09/19 09:00 09/16/19 08:09 Lipitor PO 80 mg DAILY MATT Administration Cyclobenzaprine HCl 10 mg 09/16/19 14:00 Flexeril PO Q8HR MATT Enoxaparin Sodium 40 mg 09/09/19 09:00 09/16/19 08:08 Lovenox SUB-Q 10/06/19 09:00 40 mg DAILY MATT Administration Ferrous Sulfate 324 mg 09/09/19 09:00 09/16/19 08:10 Ferrous Sulfate PO 324 mg DAILY MATT Administration Haloperidol 10 mg 09/08/19 21:00 09/16/19 08:10 Haldol Tablet PO 10 mg Q12HR MATT Administration Lidocaine 1 patch 09/09/19 09:00 09/16/19 08:08 Lidoderm TOPICAL 1 patch DAILY MATT Administration Oxycodone HCl 5 mg 09/16/19 10:50 Roxicodone Ir Tablet PO Q4HR PRN SEVERE PAIN Oxycodone HCl 10 mg 09/16/19 18:00 Oxycontin Sr 12hr PO Q12H MATT Pantoprazole Sodium 40 mg 09/09/19 09:00 09/16/19 08:10 Protonix PO 40 mg QAM MATT Administration Quetiapine Fumarate 300 mg 09/08/19 21:00 09/16/19 08:10 Seroquel PO 300 mg Q12HR MATT Administration Senna/Docusate Sodium 2 tab 09/09/19 09:00 09/16/19 08:09 Senokot S Tablet PO 2 tab BID MATT Administration Tamsulosin HCl
[2019-09-16] MEDS: CYCLOBENZAPRINE HCL 10 MG TABLET PO ×2 (12:56→21:15)
--- NOTE | 2019-09-16 13:56 | PCNFU ---
Nutrition Follow-Up Complete: No nutrition diagnosis at this time. Goal: Patient to consume 75% of meals or greater. Patient is meeting goal at 85% average Pt current nutrition is regular. Nutrition recommendation: Agree with current recommendations. Last recorded weight is 87.3 kg. Bowel Motility: last bowel movement reported on 09/15/19 Labs Reviewed: Hgb (9.7) Hct (30.8) Meds Noted: xanax, lovenox, ferrous sulfate, prinivil, roxicodine, protonix, senokot, flomax, albuterol Additional Notes: Patient requesting smaller portion sizes. Diet office was notified. Patient states hamburger and meatloaf are dry and salt and pepper were forgotten on tray. Patient reports good appetite and did not express any diet related concerns/questions at this time Follow up in 7 days.
--- NOTE | 2019-09-16 14:04 | PCNSR ---
On 09/16/19, the student, Joshua Caicedo, provided care and completed [facility] documentation on this patient. I have reviewed the student's documentation and agree with the findings.
[2019-09-16] MEDS: TAMSULOSIN HCL 0.4 MG CAPSULE 0.8 MG PO (17:09)
[2019-09-16] MEDS: traZODone HCL 50 MG TABLET PO (21:16)
[2019-09-17] MEDS: CYCLOBENZAPRINE HCL 10 MG TABLET PO ×3 (05:27→22:22)
[2019-09-17 05:44] VITALS: BP 137/64; PULSE 103; RESP 20; TEMP 36.3; O2SAT 96
[2019-09-17 05:54] VITALS: PULSE 102; RESP 18
[2019-09-17] MEDS: ALBUTEROL SULFATE NEB 2.5 MG/3 ML INH INHALATION (05:54)
[2019-09-17 06:03] VITALS: PULSE 103; RESP 18
[2019-09-17] MEDS: ENOXAPARIN 40 MG/0.4 ML SYRINGE SUB-Q (08:19)
[2019-09-17] MEDS: ALPRAZolam 0.5 MG TABLET 1 MG PO ×2 (08:19→20:16)
[2019-09-17] MEDS: ATORVASTATIN 40 MG TABLET 80 MG PO (08:19)
[2019-09-17] MEDS: FERROUS SULFATE 324 MG TABLET PO (08:20)
[2019-09-17] MEDS: SENNA/DOCUSATE SODIUM TABLET 2 TAB PO ×2 (08:20→17:12)
[2019-09-17] MEDS: LIDOCAINE 5% PATCH 1 PATCH TOPICAL (08:21)
[2019-09-17] MEDS: PANTOPRAZOLE 40 MG TABLET PO (08:21)
[2019-09-17] MEDS: HALOPERIDOL 5 MG TABLET 10 MG PO ×2 (08:21→20:16)
[2019-09-17] MEDS: QUEtiapine FUMARATE 100 MG TABLET 300 MG PO ×2 (09:16→20:16)
[2019-09-17 14:00] VITALS: BP 113/68; PULSE 96; RESP 18; TEMP 36.3; O2SAT 94
--- NOTE | 2019-09-17 17:00 | WPDNEURORHBP ---
Subjective Date/time seen: 09/17/19 17:00 Interval history: this 59-year-old gentleman is here after having had surgery for the right lower extremity fracture the incision is clean no sign of infection is noted his pain control is fair so I have increased his OxyContin extended release to 3 times a day overall he is definitely is making progress doing well his underlying psychiatric condition is under control He denies any headache nausea vomiting chest pain shortness of breath fever chills sore throat Review of Systems Review of Systems: All systems reviewed & are unremarkable except as noted in HPI and below Functional Status Ambulation Ability Ability to Ambulate 10 Feet: Contact Guard Ability to Ambulate 50 Feet With 2 Turns: Contact Guard Ambulation Assistive Devices: Walker, Standard Transfers Ability Ability to Transfer In/Out of Chair: Contact Guard Exam Const: General: comfortable and no acute distress HENMT: General nose exam: Normal nares present Mouth: Yes moist mucous membranes Eyes: General: appearance normal, both eyes and all related structures Neck: Neck: supple and no JVD Resp: Effort & Inspection: normal respiratory effort Auscultation: clear to auscultation bilaterally Cardio: Rate: regular rate Rhythm: regular rhythm GI: GI Palp: Yes Soft to palpation Auscultation: normal bowel sounds Skin: General skin exam: normal color and no rashes or lesions noted Neuro: Other: patient is awake alert well oriented follows all commands making process excellent in the rehab and any weakness is related to the fracture he has sustained and post surgery Extrem: Other: the incision is clean and healthy Psych: Mental Status: mental status grossly normal Objective Data Vital Signs Vital Signs: Vital Signs - 24 hr 09/16/19 21:37 09/17/19 05:44 09/17/19 05:54 Temperature 36.8 C 36.3 C L Pulse Rate 96 103 H 102 H Respiratory Rate 18 20 18 Blood Pressure 125/71 137/64 Pulse Oximetry 98 96 09/17/19 06:03 09/17/19 14:00 Temperature 36.3 C L Pulse Rate 103 H 96 Respiratory Rate 18 18 Blood Pressure 113/68 Pulse Oximetry 94 Intake/Output Intake/Output: Intake & Output 09/14/19 09/15/19 09/16/19 09/17/19 23:59 23:59 23:59 23:59 Intake Total 880 720 980 560 Balance 880 720 980 560 Meds/Results Medications: Active Medications Generic Name Dose Route Start Last Admin Trade Name Serafinq PRN Reason Stop Dose Admin Acetaminophen 1,000 mg 09/08/19 18:02 09/13/19 11:44 Tylenol Tablet PO 1,000 mg Q6H PRN Administration Pain 1-3 Albuterol 2.5 mg 09/14/19 13:19 09/17/19 05:54 Albuterol Sulf Neb 2.5 Mg/3 Ml INHALATION 2.5 mg Q6HRT PRN Administration Shortness Of Breath Alprazolam 1 mg 09/08/19 21:00 09/17/19 08:19 Xanax PO 1 mg Q12HR MATT Administration Atorvastatin Calcium 80 mg 09/09/19 09:00 09/17/19 08:19 Lipitor PO 80 mg DAILY MATT Administration Cyclobenzaprine HCl 10 mg 09/16/19 14:00 09/17/19 14:18 Flexeril PO 10 mg Q8HR MATT Administration Enoxaparin Sodium 40 mg 09/09/19 09:00 09/17/19 08:19 Lovenox SUB-Q 10/06/19 09:00 40 mg DAILY MATT Administration Ferrous Sulfate 324 mg 09/09/19 09:00 09/17/19 08:20 Ferrous Sulfate PO 324 mg DAILY MATT Administration Haloperidol 10 mg 09/08/19 21:00 09/17/19 08:21 Haldol Tablet PO 10 mg Q12HR MATT Administration Lidocaine 1 patch 09/09/19 09:00 09/17/19 08:21 Lidoderm TOPICAL 1 patch DAILY MATT Administration Oxycodone HCl 10 mg 09/17/19 14:00 09/17/19 14:19 Oxycontin Sr 12hr PO 10 mg Q8HR MATT Administration Oxycodone HCl 5 mg 09/17/19 12:00 09/17/19 11:57 Roxicodone Ir Tablet PO 5 mg Q3H PRN Administration SEVERE PAIN Pantoprazole Sodium 40 mg 09/09/19 09:00 09/17/19 08:21 Protonix PO 40 mg QAM MATT Administration Quetiapine Fumarate 300 mg 09/08/19 21:00 09/17/19 09:16 Seroquel PO
[2019-09-17] MEDS: TAMSULOSIN HCL 0.4 MG CAPSULE 0.8 MG PO (17:11)
[2019-09-17] MEDS: traZODone HCL 50 MG TABLET PO (20:17)
[2019-09-17 20:43] VITALS: BP 129/77; PULSE 97; RESP 20; TEMP 36.6; O2SAT 98
[2019-09-18] MEDS: CYCLOBENZAPRINE HCL 10 MG TABLET PO ×3 (05:07→20:53)
[2019-09-18 05:11] VITALS: BP 103/65; PULSE 93; RESP 18; TEMP 36.3; O2SAT 93
[2019-09-18] MEDS: LIDOCAINE 5% PATCH 1 PATCH TOPICAL (09:42)
[2019-09-18] MEDS: ALPRAZolam 0.5 MG TABLET 1 MG PO ×2 (09:45→20:52)
[2019-09-18] MEDS: ENOXAPARIN 40 MG/0.4 ML SYRINGE SUB-Q (09:46)
[2019-09-18] MEDS: SENNA/DOCUSATE SODIUM TABLET 2 TAB PO ×2 (09:46→16:57)
[2019-09-18] MEDS: ATORVASTATIN 40 MG TABLET 80 MG PO (09:46)
[2019-09-18] MEDS: HALOPERIDOL 5 MG TABLET 10 MG PO ×2 (09:46→20:51)
[2019-09-18] MEDS: FERROUS SULFATE 324 MG TABLET PO (09:46)
[2019-09-18] MEDS: PANTOPRAZOLE 40 MG TABLET PO (09:47)
[2019-09-18] MEDS: QUEtiapine FUMARATE 100 MG TABLET 300 MG PO ×2 (09:47→20:53)
[2019-09-18 14:00] VITALS: BP 128/71; PULSE 106; RESP 20; TEMP 36.7; O2SAT 97
[2019-09-18] MEDS: TAMSULOSIN HCL 0.4 MG CAPSULE 0.8 MG PO (16:57)
[2019-09-18] MEDS: traZODone HCL 50 MG TABLET PO (20:52)
[2019-09-18 22:00] VITALS: BP 121/71; PULSE 97; RESP 17; TEMP 36.9; O2SAT 97
[2019-09-19 06:00] VITALS: BP 141/61; PULSE 99; RESP 18; TEMP 36.3; O2SAT 95
[2019-09-19] MEDS: CYCLOBENZAPRINE HCL 10 MG TABLET PO ×3 (06:31→19:54)
[2019-09-19] MEDS: ALPRAZolam 0.5 MG TABLET 1 MG PO ×2 (08:48→19:54)
[2019-09-19] MEDS: SENNA/DOCUSATE SODIUM TABLET 2 TAB PO ×2 (08:49→17:44)
[2019-09-19] MEDS: ATORVASTATIN 40 MG TABLET 80 MG PO (08:49)
[2019-09-19] MEDS: ENOXAPARIN 40 MG/0.4 ML SYRINGE SUB-Q (08:49)
[2019-09-19] MEDS: FERROUS SULFATE 324 MG TABLET PO (08:49)
[2019-09-19] MEDS: QUEtiapine FUMARATE 100 MG TABLET 300 MG PO ×2 (08:50→19:55)
[2019-09-19] MEDS: HALOPERIDOL 5 MG TABLET 10 MG PO ×2 (08:50→19:55)
[2019-09-19] MEDS: PANTOPRAZOLE 40 MG TABLET PO (08:50)
[2019-09-19] MEDS: LIDOCAINE 5% PATCH 1 PATCH TOPICAL (08:50)
[2019-09-19 14:00] VITALS: BP 129/67; PULSE 105; RESP 16; TEMP 36.8; O2SAT 98
--- NOTE | 2019-09-19 15:20 | WPDNEURORHBP ---
Subjective Date/time seen: 09/19/19 15:20 Interval history: this 59-year-old gentleman is here because of right lower extremity fracture the incision is healing well he is nonweightbearing on that lower extremity but making progress quite a bit denies any headache nausea vomiting chest pain shortness of breath fever chills sore throat Review of Systems Review of Systems: All systems reviewed & are unremarkable except as noted in HPI and below Functional Status Ambulation Ability Ability to Ambulate 10 Feet: Independent Ability to Ambulate 50 Feet With 2 Turns: Contact Guard Ambulation Assistive Devices: Walker, Standard Transfers Ability Ability to Transfer In/Out of Chair: Contact Guard Exam Const: General: comfortable and no acute distress HENMT: General nose exam: Normal nares present Mouth: Yes moist mucous membranes Eyes: General: appearance normal, both eyes and all related structures Neck: Neck: supple and no JVD Resp: Effort & Inspection: normal respiratory effort Auscultation: clear to auscultation bilaterally Cardio: Rate: regular rate Rhythm: regular rhythm GI: GI Palp: Yes Soft to palpation Auscultation: normal bowel sounds Skin: General skin exam: normal color and no rashes or lesions noted Neuro: Other: patient's is overall stable making progress any weakness is related to the not very moving bearing status of the right lower extremity Extrem: Other: the incision on the right leg is clean and healthy Psych: Mental Status: mental status grossly normal Objective Data Vital Signs Vital Signs: Vital Signs - 24 hr 09/18/19 22:00 09/19/19 06:00 09/19/19 14:00 Temperature 36.9 C 36.3 C L 36.8 C Pulse Rate 97 99 105 H Respiratory Rate 17 18 16 Blood Pressure 121/71 141/61 H 129/67 Pulse Oximetry 97 95 98 Intake/Output Intake/Output: Intake & Output 09/16/19 09/17/19 09/18/19 09/19/19 23:59 23:59 23:59 23:59 Intake Total 646 724 0916 1200 Balance 173 992 8363 1200 Meds/Results Medications: Active Medications Generic Name Dose Route Start Last Admin Trade Name Freq PRN Reason Stop Dose Admin Acetaminophen 1,000 mg 09/08/19 18:02 09/13/19 11:44 Tylenol Tablet PO 1,000 mg Q6H PRN Administration Pain 1-3 Albuterol 2.5 mg 09/14/19 13:19 09/17/19 05:54 Albuterol Sulf Neb 2.5 Mg/3 Ml INHALATION 2.5 mg Q6HRT PRN Administration Shortness Of Breath Alprazolam 1 mg 09/08/19 21:00 09/19/19 08:48 Xanax PO 1 mg Q12HR MATT Administration Atorvastatin Calcium 80 mg 09/09/19 09:00 09/19/19 08:49 Lipitor PO 80 mg DAILY MATT Administration Cyclobenzaprine HCl 10 mg 09/16/19 14:00 09/19/19 14:00 Flexeril PO 10 mg Q8HR MATT Administration Enoxaparin Sodium 40 mg 09/09/19 09:00 09/19/19 08:49 Lovenox SUB-Q 10/06/19 09:00 40 mg DAILY MATT Administration Ferrous Sulfate 324 mg 09/09/19 09:00 09/19/19 08:49 Ferrous Sulfate PO 324 mg DAILY MATT Administration Haloperidol 10 mg 09/08/19 21:00 09/19/19 08:50 Haldol Tablet PO 10 mg Q12HR MATT Administration Lidocaine 1 patch 09/09/19 09:00 09/19/19 08:50 Lidoderm TOPICAL 1 patch DAILY MATT Administration Oxycodone HCl 10 mg 09/17/19 14:00 09/19/19 14:00 Oxycontin Sr 12hr PO 10 mg Q8HR MATT Administration Oxycodone HCl 5 mg 09/17/19 12:00 09/19/19 09:38 Roxicodone Ir Tablet PO 5 mg Q3H PRN Administration SEVERE PAIN Pantoprazole Sodium 40 mg 09/09/19 09:00 09/19/19 08:50 Protonix PO 40 mg QAM MATT Administration Quetiapine Fumarate 300 mg 09/08/19 21:00 09/19/19 08:50 Seroquel PO 300 mg Q12HR MATT Administration Senna/Docusate Sodium 2 tab 09/09/19 09:00 09/19/19 08:49 Senokot S Tablet PO 2 tab BID MATT Administration Tamsulosin HCl 0.8 mg 09/08/19 18:30 09/18/19 16:57 Flomax PO 0.8 mg DAILY@1700 MATT Administration Trazodone HCl 50 mg 09/08/19 21:00 09/18/19 20:
[2019-09-19] MEDS: TAMSULOSIN HCL 0.4 MG CAPSULE 0.8 MG PO (17:45)
[2019-09-19] MEDS: traZODone HCL 50 MG TABLET PO (19:54)
[2019-09-19 22:00] VITALS: BP 132/70; PULSE 96; RESP 18; TEMP 36.9; O2SAT 97
[2019-09-20] MEDS: CYCLOBENZAPRINE HCL 10 MG TABLET PO ×3 (05:35→20:35)
[2019-09-20 06:00] VITALS: BP 110/86; PULSE 93; RESP 18; TEMP 36.6; O2SAT 95
[2019-09-20] MEDS: ALPRAZolam 0.5 MG TABLET 1 MG PO ×2 (09:22→20:35)
[2019-09-20] MEDS: ENOXAPARIN 40 MG/0.4 ML SYRINGE SUB-Q (09:23)
[2019-09-20] MEDS: SENNA/DOCUSATE SODIUM TABLET 2 TAB PO ×2 (09:23→17:29)
[2019-09-20] MEDS: ATORVASTATIN 40 MG TABLET 80 MG PO (09:23)
[2019-09-20] MEDS: FERROUS SULFATE 324 MG TABLET PO (09:23)
[2019-09-20] MEDS: PANTOPRAZOLE 40 MG TABLET PO (09:24)
[2019-09-20] MEDS: QUEtiapine FUMARATE 100 MG TABLET 300 MG PO ×2 (09:24→20:36)
[2019-09-20] MEDS: HALOPERIDOL 5 MG TABLET 10 MG PO ×2 (09:24→20:35)
[2019-09-20] MEDS: LIDOCAINE 5% PATCH 1 PATCH TOPICAL (09:24)
[2019-09-20 14:00] VITALS: BP 131/77; PULSE 98; RESP 20; TEMP 37.1; O2SAT 97
--- NOTE | 2019-09-20 16:32 | WPDNEURORHBP ---
Subjective Date/time seen: 09/20/19 16:32 Interval history: this 59-year-old with the psychiatric history which has been stable throughout the course of hospitalization has been here after having had the periprosthetic fracture around the previous right knee replacement the patient incision is clean he does have an appointment coming early next week and did well in the therapy he is nonweightbearing of the right lower extremity denies any headache nausea vomiting chest pain shortness of breath fever chills sore throat Review of Systems Review of Systems: All systems reviewed & are unremarkable except as noted in HPI and below Functional Status Ambulation Ability Ability to Ambulate 10 Feet: Independent Ability to Ambulate 50 Feet With 2 Turns: Contact Guard Ambulation Assistive Devices: Walker, Standard Transfers Ability Ability to Transfer In/Out of Chair: Contact Guard Exam Const: General: comfortable and no acute distress HENMT: General nose exam: Normal nares present Eyes: General: appearance normal, both eyes and all related structures Neck: Neck: supple and no JVD Resp: Effort & Inspection: normal respiratory effort Auscultation: clear to auscultation bilaterally Cardio: Rate: regular rate Rhythm: regular rhythm GI: GI Palp: Yes Soft to palpation Auscultation: normal bowel sounds Skin: General skin exam: normal color and no rashes or lesions noted Neuro: Other: patient is awake alert well oriented stable both psychiatric and neurological ramos not any distress has improved overall and the issue remains of the nonweightbearing the right lower extremity for which he is going to follow up with the surgeons early next week Extrem: Other: the incision at the mid right lower extremity from the surgery for the periprosthetic fracture is clean no drainage is noted no sign of infectious process Psych: Mental Status: mental status grossly normal Objective Data Vital Signs Vital Signs: Vital Signs - 24 hr 09/19/19 22:00 09/20/19 06:00 09/20/19 14:00 Temperature 36.9 C 36.6 C 37.1 C Pulse Rate 96 93 98 Respiratory Rate 18 18 20 Blood Pressure 132/70 110/86 131/77 Pulse Oximetry 97 95 97 Intake/Output Intake/Output: Intake & Output 09/17/19 09/18/19 09/19/19 09/20/19 23:59 23:59 23:59 23:59 Intake Total 660 1200 1560 480 Balance 660 1200 1560 480 Meds/Results Medications: Active Medications Generic Name Dose Route Start Last Admin Trade Name Freq PRN Reason Stop Dose Admin Acetaminophen 1,000 mg 09/08/19 18:02 09/13/19 11:44 Tylenol Tablet PO 1,000 mg Q6H PRN Administration Pain 1-3 Albuterol 2.5 mg 09/14/19 13:19 09/17/19 05:54 Albuterol Sulf Neb 2.5 Mg/3 Ml INHALATION 2.5 mg Q6HRT PRN Administration Shortness Of Breath Alprazolam 1 mg 09/08/19 21:00 09/20/19 09:22 Xanax PO 1 mg Q12HR MATT Administration Atorvastatin Calcium 80 mg 09/09/19 09:00 09/20/19 09:23 Lipitor PO 80 mg DAILY MATT Administration Cyclobenzaprine HCl 10 mg 09/16/19 14:00 09/20/19 14:39 Flexeril PO 10 mg Q8HR MATT Administration Enoxaparin Sodium 40 mg 09/09/19 09:00 09/20/19 09:23 Lovenox SUB-Q 10/06/19 09:00 40 mg DAILY MATT Administration Ferrous Sulfate 324 mg 09/09/19 09:00 09/20/19 09:23 Ferrous Sulfate PO 324 mg DAILY MATT Administration Haloperidol 10 mg 09/08/19 21:00 09/20/19 09:24 Haldol Tablet PO 10 mg Q12HR MATT Administration Lidocaine 1 patch 09/09/19 09:00 09/20/19 09:24 Lidoderm TOPICAL 1 patch DAILY MATT Administration Oxycodone HCl 10 mg 09/17/19 14:00 09/20/19 14:40 Oxycontin Sr 12hr PO 10 mg Q8HR MATT Administration Oxycodone HCl 5 mg 09/17/19 12:00 09/20/19 13:04 Roxicodone Ir Tablet PO 5 mg Q3H PRN Administration SEVERE PAIN Pantoprazole Sodium 40 mg 09/09/19 09:00 09/20/19 09:24 Protonix PO 40 mg QAM MATT Administration Quetiapine Fumarate 300
[2019-09-20] MEDS: TAMSULOSIN HCL 0.4 MG CAPSULE 0.8 MG PO (17:29)
[2019-09-20] MEDS: traZODone HCL 50 MG TABLET PO (20:36)
[2019-09-20 22:00] VITALS: BP 127/68; PULSE 98; RESP 20; TEMP 37.1; O2SAT 95
[2019-09-21 06:00] VITALS: BP 143/66; PULSE 102; RESP 18; TEMP 36.4; O2SAT 94
[2019-09-21] MEDS: CYCLOBENZAPRINE HCL 10 MG TABLET PO (06:14)
[2019-09-21] MEDS: ALPRAZolam 0.5 MG TABLET 1 MG PO (08:41)
[2019-09-21] MEDS: ATORVASTATIN 40 MG TABLET 80 MG PO (08:41)
[2019-09-21] MEDS: SENNA/DOCUSATE SODIUM TABLET 2 TAB PO (08:41)
[2019-09-21] MEDS: ENOXAPARIN 40 MG/0.4 ML SYRINGE SUB-Q (08:41)
[2019-09-21] MEDS: PANTOPRAZOLE 40 MG TABLET PO (08:42)
[2019-09-21] MEDS: FERROUS SULFATE 324 MG TABLET PO (08:42)
[2019-09-21] MEDS: LIDOCAINE 5% PATCH 1 PATCH TOPICAL (08:42)
[2019-09-21] MEDS: HALOPERIDOL 5 MG TABLET 10 MG PO (08:42)
[2019-09-21] MEDS: QUEtiapine FUMARATE 100 MG TABLET 300 MG PO (08:47)
--- NOTE | 2019-09-24 14:30 | PM.DS ---
DS: Admitting Diagnosis Admitting Diagnosis Admitting Diagnosis: Periprosthetic fracture around internal prosthetic right knee joint, initial encounter DS: Discharge Diagnosis Discharge Diagnosis (1) Hyperlipidemia: Code(s): E78.5 - Hyperlipidemia, unspecified Status: Acute (2) GERD (gastroesophageal reflux disease): Code(s): K21.9 - Gastro-esophageal reflux disease without esophagitis Status: Acute (3) Migraine: Code(s): G43.909 - Migraine, unspecified, not intractable, without status migrainosus Status: Acute (4) Depression: Code(s): F32.9 - Major depressive disorder, single episode, unspecified Status: Acute (5) Bipolar disorder: Code(s): F31.9 - Bipolar disorder, unspecified Status: Acute (6) Hypertension: Code(s): I10 - Essential (primary) hypertension Status: Acute (7) Periprosthetic fracture around internal prosthetic knee joint: Code(s): M97.8XXA - Periprosthetic fracture around other internal prosthetic joint, initial encounter; Z96.659 - Presence of unspecified artificial knee joint Status: Acute DS: Summary Hospital Course Reason for hospitalization: this 59-year-old gentleman with a long history of psychiatric illness was hospitalized post surgery for periprosthetic fracture of the right knee joint she received the physical therapy of compression therapy and gait training and did fairly well and was able to be discharged home with home health Hospital Course: eating independent, oral hygiene independent, toileting independent, bathing independent, upper body dressing independent, lower body dressing independent, foot fairly independent, rolling in bed independent, sitting to lying independent, lying to sitting independent, sit to stand independent, chair transfers independently, toilet transfers independent, car transfers independent, walking 10 feet independent, walking 50 feet 2 turns patient was unable to, walking 150 feet patient was unable to, walking 10 feet uneven surfaces partial assistance, carb or step partial assistance, 4 steps patient was unable to, 12 steps not applicable are not tested became object independent, wheelchair 50 feet independent, which 150 feet independent, Time Spent with Patient Time attestation: Total time spent providing and/or coordinating discharge services: Exam Const: General: comfortable and no acute distress HENMT: General nose exam: Normal nares present Mouth: Yes dry mucous membranes Eyes: General: appearance normal, both eyes and all related structures Neck: Neck: supple and no JVD Resp: Effort & Inspection: normal respiratory effort Auscultation: clear to auscultation bilaterally Cardio: Rate: regular rate Rhythm: regular rhythm GI: GI Palp: Yes Soft to palpation Auscultation: normal bowel sounds Skin: General skin exam: normal color and no rashes or lesions noted Neuro: Other: patient was awake and alert well oriented did not have any psychosis or anything unusual from the psychological standpoint whatever weakness was related to the surgery he has had due to fracture Extrem: Other: incision is clean healthy Psych: Mental Status: mental status grossly normal Discharge Plan Discharge Attending physician on discharge: Andrews Smith Discharging Clinician: Andrews Smith Anticipated Discharge Date/Time: 09/21/19 16:36 Patient Disposition: Home Health Service Activity: may shower and no driving Diet: as tolerated Wound Care Instructions: follow printed instructions Discharge Instructions: Per Care Coordination: Home Health services have been arranged through [facility]. [facility] can be contacted at [phone]. Please fax discharge instructions to [facility] at [phone]. the surgical follow-up may decide about this consideration of the Lovenox and switch him over to aspirin 320 milligram b.i.d. that will be
== END 2019-09-21 11:45 | disposition home health service (06) | DRG 561 ==
PROVIDERS: Admitting Provider Psychiatry & Neurology Neurology; PCP Physician Assistant; Visit Provider Psychiatry & Neurology Neurology
DX: S82.101D Unspecified fracture of upper end of right tibia, subsequent encounter for closed fracture with routine healing (principal); M97.11XD Periprosthetic fracture around internal prosthetic right knee joint, subsequent encounter; S82.451A Displaced comminuted fracture of shaft of right fibula, initial encounter for closed fracture; D64.9 Anemia, unspecified; E78.5 Hyperlipidemia, unspecified; F41.8 Other specified anxiety disorders; F31.9 Bipolar disorder, unspecified; G43.909 Migraine, unspecified, not intractable, without status migrainosus; I10 Essential (primary) hypertension; I25.10 Atherosclerotic heart disease of native coronary artery without angina pectoris; K21.9 Gastro-esophageal reflux disease without esophagitis; K20.9 Esophagitis, unspecified; M16.0 Bilateral primary osteoarthritis of hip; R33.9 Retention of urine, unspecified; Z98.890 Other specified postprocedural states; Z96.651 Presence of right artificial knee joint; Z87.891 Personal history of nicotine dependence; W19.XXXD Unspecified fall, subsequent encounter
CPT/HCPCS: 36415; 71045; 80048; 81001; 85025; 94640; 97110; 97116; 97161; 97166; 97530; 97535; 97542; A9270; J1650